=== PATIENT | male | born 1990 | race Two or more races ===

== ENCOUNTER 2021-04-30 21:44 | Emergency (ER) | payer MEDICAID ==
[~2021-04-30] VITALS: Ht 175.3 cm; Wt 81.6 kg
[2021-04-30] MEDS ORDERED: LIDOCAINE 1%-EPI 1:100,000 20 ML VIAL ONE (23:16)
[2021-05-01] MEDS ORDERED: oxyCODONE/APAP (5/325 MG) 1 UDTAB TABLET ONE (00:06)
[2021-05-01] MEDS: LIDOCAINE 1%-EPI 1:100,000 50 ML VIAL IJ ONE (00:08)
[2021-05-01] MEDS: oxyCODONE/APAP (5/325 MG) 1 UDTAB TABLET PO ONE (00:08)
[2021-05-01 02:31] VITALS: BP 140/80
== END 2021-05-01 02:32 | disposition home or self-care (01) ==
LOC: ER 21:46
DX: S06.891A Other specified intracranial injury with loss of consciousness of 30 minutes or less, initial encounter (principal); S01.01XA Laceration without foreign body of scalp, initial encounter; S50.12XA Contusion of left forearm, initial encounter; M54.6 Pain in thoracic spine; Z91.018 Allergy to other foods; Y00.XXXA Assault by blunt object, initial encounter; Y93.89 Activity, other specified; Y92.89 Other specified places as the place of occurrence of the external cause; Y99.8 Other external cause status
CPT/HCPCS: 12002; 70450; 72125; 72128; 99284; A6403; J3490 ×2

== ENCOUNTER 2021-05-01 15:49 | Emergency (ER) | payer MEDICAID ==
[~2021-05-01] VITALS: Ht 172.7 cm; Wt 81.6 kg
--- NOTE | 2021-05-01 15:49 | NUR ---
PT CAME FOR A WOUND CHECK OF HIS STITCHES ON HIS HEAD LACERATION.
[2021-05-01 15:57] VITALS: BP 133/88
--- NOTE | 2021-05-01 16:04 | NUR ---
Patient discharged to home in stable condition. Written and verbal after care instructions given. Patient verbalizes understanding of instruction.
== END 2021-05-01 16:04 | disposition home or self-care (01) ==
LOC: ER 16:00
DX: S01.81XD Laceration without foreign body of other part of head, subsequent encounter (principal); Z91.018 Allergy to other foods; Y08.89XD Assault by other specified means, subsequent encounter